=== PATIENT | female | born 1980 | race Caucasian/White ===

== ENCOUNTER 2024-05-15 17:34 | Outpatient (CLI) | payer SELFPAY | END 2024-05-15 17:35 | disposition home or self-care (01) | LOC: LAB 17:34 | PROVIDERS: ATTEND Orthopaedic Surgery Adult Reconstructive Orthopaedic Surgery | DX: M17.11 Unilateral primary osteoarthritis, right knee (principal) | CPT/HCPCS: 81599 ==